=== PATIENT | female | born 1955 | race Caucasian/White ===

== ENCOUNTER → 2017-10-24 | Outpatient (CLI) | payer OTHER ==
--- NOTE | 2017-10-11 09:26 | MH ---
cc: Troy Saavedra MD DATE OF ADMISSION: 10/24/2017 ADMISSION DIAGNOSIS: Cataract, left eye. HISTORY OF PRESENT ILLNESS: This 62-year-old white female is coming to [facility] for the purpose of the lens extraction of the left eye with intraocular lens implant under local anesthesia. She has noted decreasing visual acuity interfering with her daily activities and elected to have the above procedure. Her best corrected visual acuity in room light is 20/25 -3 in the right eye and 20/30 -3 in the left. PAST MEDICAL HISTORY: The patient has a history of hypertension, fibromyalgia, headache, tremors, anxiety and depression. PAST SURGICAL HISTORY: Includes biopsy in 2008, mass removal in 2009, appendectomy in 2010, other biopsy in 2010, hernia repair in 2010, tonsillectomy in 2012, a broken foot 2016. DAILY MEDICATIONS: Include: 1. Primidone. 2. Alprazolam. 3. Prozac. 4. Gabapentin. 5. Tramadol. 6. VESIcare. 7. Zolpidem. 8. Levothyroxine. 9. Losartan. 10. Metoprolol. 11. Vagifem. 12. Cipro. 13. Clonazepam. 14. Rosuvastatin. 15. Diclofenac. ALLERGIES: SHE IS ALLERGIC TO SULFA. SOCIAL HISTORY: She does not smoke or drink alcohol. FAMILY HISTORY: Positive for father with cataracts. REVIEW OF SYSTEMS: HEAD: Patient denies severe headaches, dizziness or recent head injury. EARS: Patient denies hearing loss, ear pain, discharge or ringing in the ears. NOSE: Patient denies nasal discharge, obstruction or frequent colds. MOUTH AND THROAT: Patient denies soreness of the mouth or tongue, bleeding gums, trouble swallowing, changes in voice or sore throat. NECK: Patient denies neck pain or swelling, limitation of neck movement or neck injury. CARDIOPULMONARY SYSTEM: Patient denies shortness of breath, orthopnea, chronic cough, sputum production, hemoptysis, chest pain, wheezing, palpitations or light-headedness. GI SYSTEM: Patient occasionally she gets hemorrhoids, but denies poor appetite, nausea, vomiting, abdominal pain, ulcers, or change in bowel habits. SYSTEM: The patient denies urinary frequency, dysuria, change in urine color. NERVOUS SYSTEM: Patient denies convulsions, vertigo, stroke, numbness or weakness. PHYSICAL EXAM: VITAL SIGNS: Blood pressure 144/86, pulse 72, respirations 16. HEENT: Head is normocephalic, atraumatic. Nose without rhinorrhea. Throat, clear. NECK: Supple. CHEST: Clear. HEART: Regular rate and rhythm. ABDOMEN: Without tenderness. EXTREMITIES: Without edema. NEUROLOGIC: Within normal limits. MENTAL STATUS: Within normal limits. EYE EXAM: The patient's best corrected visual acuity in room light is 20/25 -3 in the right eye and 20/30 -3 in the left. Visual abbott are full to confrontation testing. Extraocular muscle exam reveals full versions with orthophoria at distance and near. Pupils are 3.5 mm, equal, round, and reactive to light without afferent defect. Anterior segment examination reveals minimal guttata on the cornea of each eye. There are nuclear sclerotic, posterior cortical, and posterior subcapsular cataractous changes bilaterally greater in the left eye than the right. Intraocular pressure is 19 in the right eye and 20 in the left eye applanation tonometry. Dilated fundus exam revealed sharp disc with cup-to-disc ratio of 0.3 bilaterally. There are minimal drusen in the macula of each eye and the background is within normal limits. IMPRESSIONS: 1. Bilateral cataracts left greater than right. 2. Minimal macular drusen both eyes. PLAN: A lens extraction of the left eye with intraocular lens implant under local anesthesia through [facility]. The patient has been cleared medically. She has been counseled as to the risks, benefits and alternatives and elected to proceed. I feel that cataract surgery will improve the quality of life and activities of daily living in this patient. MD SHIRAZ Mir/DL , 09:09 AM , 09:26 AM
[~2017-10-24] VITALS: Ht 160 cm; Wt 73.5 kg
[~2017-10-24] MED LIST: ACETYLCHOLINE CHL OPHT SOLN 1:100 2 ML VIAL ONE; ALPR0.5T3 PO; AZO CRANBERRY PO; BUSP10TA PO; CHLORHEXIDINE GLUCONATE 2 % 1 PACK (2 CLOTHS) TOPICAL PRN; CIPR250T52 PO; CLON0.5T PO; CLON1TAB PO; DICL1CAP3 PO; DICL1CAP4 PO; EPINEPHrine HCL PF/SF (1:1000) 1 MG/ML AMP I-OCULAR ONE; GABA100C4 PO; GABA300C5 PO; HYALURONIDASE/LIDOCAINE/BUPIVACAINE 5 ML SYR LEFT EYE ONE; LACTATED RINGER'S 1000 ML IV PRN; LEVO50TA4 PO; LOSA25TA PO; METO50TA PO; METOPROLOL TARTRATE 25 MG TAB PO PRN; PILOCARPINE HCL 2% OPHT SOLN 15 ML BTL ONE; POVIDONE IODINE 5% (ANTISEPSIS KIT) 4 APPLICATIONS EACH NARE PRN; PRIM250 PO; PROPARACAINE HCL 0.5% OPHT SOLN 15 ML BTL LEFT EYE ONE; PROPOFOL 200 MG/20 ML AMP ONE; PROZ20CA11 PO; ROSU1TAB4 PO; ROSU1TAB6 PO; SODIUM CHLORID 0.9% 500 ML IV PRN; TOBRAMYCIN/DEXAMETHASONE OPTH OINT 3.5 GM TUBE ONE; TRAM50TA PO; VAGI10TA VAGINAL; VESI10TA2 PO; VISCOAT OPHT IRRIG SOLN 0.75 ML SYRINGE ONE; ZINCLOZ8 PO; ZOLP10TA3 PO
[2017-10-24 07:50] VITALS: PULSE 65
[2017-10-24] MEDS: GATIFLOXACIN 0.5% OPHT SOLN 2.5 ML BTL LEFT EYE SCH ×4 (07:52→08:01)
[2017-10-24] MEDS: TROPICAMIDE 1% OPHT SOLN 15 ML BTL LEFT EYE SCH ×4 (07:52→08:01)
[2017-10-24] MEDS: DICLOFENAC SOD 0.1% OPHT SOLN 2.5 ML BTL LEFT EYE SCH ×4 (07:52→08:01)
[2017-10-24] MEDS: CYCLOPENTOLATE HCL 1% OPHT SOLN 2 ML BTL LEFT EYE SCH ×4 (07:52→08:01)
[2017-10-24] MEDS: PHENYLEPHRINE HCL 2.5% OPTH SOLN 2 ML BTL LEFT EYE SCH ×4 (07:52→08:01)
[2017-10-24 08:22] VITALS: PULSE 64
[2017-10-24 10:25] VITALS: BP 157/81; PULSE 66; RESP 16; TEMP 97.8; O2SAT 98
--- NOTE | 2017-10-24 14:00 | MP ---
cc: Troy Saavedra MD DATE OF OPERATION: 10/24/2017 PREOPERATIVE DIAGNOSIS: Cataract, left eye. POSTOPERATIVE DIAGNOSIS: Cataract left eye. OPERATION: Extracapsular cataract extraction with posterior chamber intraocular lens implant by phacoemulsification, left eye. SURGEON: Troy Saavedra M.D. ANESTHESIA: Local. COMPLICATIONS: None. INDICATIONS: See history and physical previously dictated. OPERATIVE PROCEDURE: The patient had adequate retrobulbar and eyelid blocks administered in the holding area and was brought to the operating room. The left eye was prepped and draped in the usual sterile ophthalmic manner. A lid speculum was inserted in the left eye. A 4-0 silk bridle suture was placed through the conjunctiva near the superior rectus muscle and it was tagged to the drape. A stab incision was then made at the 2 o'clock position. Viscoelastic was injected into the anterior chamber. The anterior chamber was entered with a 2.75 mm keratome through a corneal tunnel incision. A 360 degree continuous curvilinear capsulorrhexis was then performed. Hydrodissection was utilized to divide the nucleus into inner and outer components and to separate the cortex from the capsule. Phacoemulsification was then utilized to remove the nucleus. The outer nuclear layer was removed with irrigation and aspiration and short bursts of ultrasound as necessary. The cortex was removed with the irrigation/aspiration handpiece. The posterior capsule was polished with the capsule polisher. Viscoelastic was injected into the capsular bag. The intraocular lens was inspected and found to be in good condition. The lens utilized was an Regan, model number SA60AT with a power of +23.5 diopters. The lens was inserted into the capsular bag. The viscoelastic in the anterior chamber was then removed with the irrigation-aspiration handpiece. Viscoelastic was also removed from beneath the intraocular lens. The anterior chamber was filled with Miochol-E through the stab incision and pressurized. The wound was closed with one interrupted 10-0 nylon suture. The wound was checked for leaks at this pressure and normalized pressure and there were none. The 4-0 bridle suture was removed. Pilocarpine 2% eye drops were instilled topically. The lid speculum was removed. TobraDex ophthalmic ointment was applied. The eye was double patched and shielded. The patient tolerated the procedure well and left the Operating Room in satisfactory condition. MD SHIRAZ Mir/BENJAMIN , 12:54 PM , 01:59 PM
== END ==
LOC: PHSDC 06:52
PROVIDERS: ATTEND Ophthalmology
DX: H25.812 Combined forms of age-related cataract, left eye (principal); H35.363 Drusen (degenerative) of macula, bilateral; M79.7 Fibromyalgia; I10 Essential (primary) hypertension; F41.9 Anxiety disorder, unspecified; R25.1 Tremor, unspecified; R51 Headache; Z88.2 Allergy status to sulfonamides
CPT/HCPCS: 00142; 66984; J0171; J7040; V2632